=== PATIENT | male | born 1980 | race African-American/Black ===

== ENCOUNTER 2025-05-01 21:44 | Emergency (ER) | payer SELFPAY ==
[~2025-05-01] VITALS: Ht 172.7 cm; Wt 70.3 kg
[2025-05-01 21:52] VITALS: O2SAT 100
[2025-05-01] MEDS: ONDANSETRON HCL 4MG/2ML INJ IV STA (22:02)
[2025-05-01] MEDS: MORPHINE SULFATE 4 MG/ML INJ (FOR IV/IM USE) IV STA (22:03)
[2025-05-01 22:39] LABS: BASOPHILS % 0.5 % (0.0-2.0); EOSINOPHILS % 4.2 % (0.0-5.0); HEMATOCRIT. 40.1 % (42.0-52.0); HEMOGLOBIN. 13.4 g/dL (14.0-18.0); LYMPHOCYTES % 33.3 % (20.0-50.0); MEAN PLATELET VOLUME 7.6 fl (7.4-10.4); MONOCYTES % 8.5 % (2.0-8.0); NEUTROPHILS % 53.5 % (40.0-76.0); PLATELET 319 x1000/uL (130-400); RED BLOOD CELL COUNT 4.27 mill/uL (4.7-6.1); RED CELL DISTRIBUTION WIDTH 12.8 % (11.6-14.6)
[2025-05-01 22:46] LABS: CREATININE 1.3 mg/dL (0.6-1.3); INR 0.9
[2025-05-01 22:47] LABS: UREA NITROGEN BLOOD 16 mg/dL (9-23)
[2025-05-01] MEDS: CEPHALEXIN 250MG CAPSULE PO ONE (23:34)
[2025-05-01] MEDS: TETANUS, DIPHTHERIA, PERTUSSIS VAC/PF 0.5ML (>10YR OLD) IM ONE (23:38)
[2025-05-02] MEDS ORDERED: IBUP-2029 MT (00:12)
[2025-05-02] MEDS ORDERED: CEPH500C2 MT (00:12)
[2025-05-02 00:31] VITALS: TEMP 37
[2025-05-02 01:23] VITALS: BP 137/89; PULSE 82; RESP 22; O2SAT 99
== END 2025-05-02 01:28 | disposition home or self-care (01) ==
LOC: ER 21:44
DX: S91.332A Puncture wound without foreign body, left foot, initial encounter (principal); S91.331A Puncture wound without foreign body, right foot, initial encounter; F19.90 Other psychoactive substance use, unspecified, uncomplicated; Z79.899 Other long term (current) drug therapy; Z98.890 Other specified postprocedural states; W34.09XA Accidental discharge from other specified firearms, initial encounter; Y93.89 Activity, other specified; Y92.89 Other specified places as the place of occurrence of the external cause; Y99.8 Other external cause status
CPT/HCPCS: 80048; 85025; 85610; 86850; 86900; 86901; 36415; 73630; 90715; 96372; 96374; 96375; 99285; J2405; J2270; Z7610